=== PATIENT | male | born 1980 | race Caucasian/White ===

== ENCOUNTER 2025-02-17 11:53 | Emergency (ER) | payer OTHER ==
--- OUTSIDE RECORDS SUMMARY | 2025-02-17 11:57 | XMS REPORT | Continuity of Care Document ---
Author Name Unknown Address [address] [facility] [address] [place] [address] [facility] Address [address] [facility] [address] [place] [address] Care Team Providers Care Deckhand Clam Dredge Name Role Phone Rob Zuleta Attending Clinician Unavailable Mimi Shah Attending Clinician Unavailab Rob Blackmon Admitting Clinician Unavailable UNDEFINED Admitting Clinician Unavailable Payers Payer Name Policy Type Policy Number Effective Date Expirati on Date Source Allergies, Adverse Reactions, Alerts Allergy Name Allergy Type Status Severity Reaction(s) Onset Date Inactive Date Treating Clinician Comments Source No Known Allergie s DA Active U 2020-05 00:00: 00 [facility] No Known Allergie s DA Active U 2020-05 00:00: 00 [facility] Procedures Procedure Date / Time Performed Performing Clinicia n Source [id number] 2021-04-20 00:00:00 [email or web address] [facility] Encounters Start Date/Time End Date/Time Encounter Type Admission Type Attending Clinicians Care Facility Care Department Encounter ID Source 2021-04-19 20:17:00 2021-04-20 18:16:00 Inpatient UR Rob Zuleta [facility] [id number] 97 [facility] 2021-04-20 00:09:00 2021-04-20 00:09:00 Outpatient Mimi Shah [facility] [id number] [facility] 2021-04-19 18:27:00 2021-04-19 18:27:00 Inpatient Mimi Shah [facility] [id number] [facility] Results Test Description Test Time Test Comments Results Result Co mments Source COMPREHENSIVE METABOLIC [id number] 21:01:00* Test Item Value Reference Range Interpretation Comme nts SODIUM (test code = NA) 143 mmol/L 134-147 N POTASSIUM (test code = K) 3.5 mmol/L 3.4-5.0 N CHLORIDE (test code = CL) 114 mmol/L 100-108 H CARBON DIOXIDE (test code = CO2) 23 mmol/L 21-32 N ANION GAP (test code = GAP) 6.0 GAP calc 4.0-15.0 N GLUCOSE (test code = GLU) 70 MG/DL 70-110 N BLOOD UREA NITROGEN (test code = BUN) 10 MG/DL 7-18 N GLOMERULAR FILTRATION RATE (test code = GFR) >=60 max estimate estGFR >60 CREATININE (test code = CREAT) 0.8 MG/DL 0.8-1.3 N TOTAL PROTEIN (test code = PROT) 6.5 G/DL 6.4-8.2 N ALBUMIN (test code = ALB) 3.4 G/DL 3.4-5.0 N GLOBULIN (test code = GLOB) 3.1 GM/dL ALBUMIN/GLOBULIN RATIO (test code = A/G) 1.1 RATIO 1.2-2.2 L CALCIUM (test code = CA) 8.3 MG/DL 8.5-10.1 L BILIRUBIN TOTAL (test code = BILT) 0.60 MG/DL 0.2-1.2 N SGOT/AST (test code = AST) 20 Unit/L 15-37 N SGPT/ALT (test code = ALT) 26 Unit/L 12-78 N ALKALINE PHOSPHATASE TOTAL (test code = ALKP) 59 Unit/L 50-136 N CBC W/AUTO [id number] 20:42:00* Test Item Value Reference Range Interpretation Comme nts WHITE BLOOD CELL (test code = WBC) 6.4 K/mm3 3.5-11.0 N RED BLOOD CELL (test code = RBC) 4.65 M/mm3 4.70-6.10 L HEMOGLOBIN (test code = HGB) 14.1 G/DL 12.3-15.9 N HEMATOCRIT (test code = HCT) 41.0 % 35.8-46.7 N MEAN CELL VOLUME (test code = MCV) 88.2 Fl 86.3-98.9 N MEAN CELL HGB (test code = MCH) 30.3 pg 28.9-34.4 N MEAN CELL HGB CONCETRATION (test code = MCHC) 34.4 G/DL 32.1-34.5 N RED CELL DISTRIBUTION WIDTH (test code = RDW) 13.1 SD 11.5-14.5 N PLATELET COUNT (test code = PLT) 152 K/mm3 150-450 N MEAN PLATELET VOLUME (test c ode = MPV) 11.10 fL 7.0-9.6 H NEUTROPHIL % (test code = NT%) 60.3 % 40-76 N IMMATURE GRANULOCYTE % (test code = IG%) 0.2 % 0.0-5.0 N LYMPHOCYTE % (test code = LY%) 28.5 % 20.5-51.1 N MONOCYTE % (test code = MO%) 9.7 % 1.7-9.3 H EOSINOPHIL % (test code = EO%) 0.8 % 0.0-6.0 N BASOPHIL % (test code = BA%) 0.5 % 0.0-2.0 N NUCLEATED RBC % (test code = NRBC%) 0.0 /100WBC% 0.0-1.0 N NEUTROPHIL # (test code = NT#) 3.9 K/mm3 1.8-7.6 N IMMATURE GRANULOCYTE # (test code = IG#) 0.01 x10 3/uL 0.00-0.03 N LYMPHOCYTE # (test code = LY#) 1.8 K/mm3 0.6-3.0 N MONOCYTE # (test code = MO#) 0.6 K/mm3 0.2-1.5 N EOSINOPHIL # (test code = EO#) 0.1 K/mm3 0.0-0.4 N BASOPHIL # (test code = BA#) 0.0 K/mm3 0.0-0.2 N NUCLEATED RBC # (test code = NRBC#) 0.0 K/mm3 0.00-0.01 N MANUAL DIFF REQUIRED (test c ode = MDIFF) NO DIFF/SCN CRITERIA Notes Date/Time Note Provider Source 2021-04-20 14:56:00 [facility] ([facility]) DT Operative Note REPORT#:[id number] REPORT STATUS: Signed DATE:04/20/21 TIME:1455 PATIENT: JALIL GIANG UNIT #: [id number] ROOM/BED: [place] [address] : 80 AGE: 41 SEX: M ATTEND: Rob Zuleta MD ADM AUTHOR: Christiana Medina MD * ALL edits or amendments must be made on the electronic/computer document * Operative Report Operative Note Note: Preoperative diagnosis: Acute appendicitis Postoperative diagnosis: Acute appendicitis Procedure: Laparoscopic appendectomy Surgeon: Christiana Medina MD Blower Mechanic: Litzy Gunn Anesthesia: General EBL: 5 cc IV fluids: Per anesthesia Urine output: Per anesthesia complications: None Specimen: Appendix Drains: None Finding: Acute suppurative appendicitis Procedure in detail: Patient is a 41-year-old male presents to the hospital as a transfer from an outside urgent care with a diagnosis of a acute appendicitis. Upon my evaluation, patient had 3-day history of abdominal pain, CT abdomen pelvis done at an outside facility shows inflamed and dilated appendix. Upon my evaluation, patient had rebound tenderness in the right lower quadrant. Discussed the treatment options. Patient expressed interest in surgical intervention. The risks, benefits, and alternatives were explained to the patient. Patient verbalized understanding and wished to proceed with an operation. Patient was brought to the operating room, placed supine on the operating table, general anesthesia was administered by anesthesia department. The abdomen was prepped and draped in usual surgical fashion. Preoperative timeout was performed. Patient was on scheduled antibiotics. A 5 mm incision was made in the left upper quadrant, using 5 mm optical trocar, the abdominal cavity was accessed with Optiview technique. Once inside the abdominal cavity, pneumoperitoneum was established with carbon dioxide. Initial inspection of the abdominal cavity revealed no trocar injuries. Additional 12 mm trochars placed in the left flank and a 5 mm trochars placed in the suprapubic region. Patient was positioned in Trendelenburg with rotation toward the left. Attention was turned to the right lower quadrant, the omentum was grasped retracted cephalad, the small bowel was swept to the patient's left. We visualized a dilated, inflamed, and intraperitoneal appendix that is reflected to the right paracolic gutter. The appendix was grasped, gently mobilized and placed onto anterior and caudal traction. This allowed exposure of the mesoappendix. The mesoappendix was divided and ligated sequentially with the [place] LigaSure device all the way to the appendiceal cecal base. Once at the appendiceal base, the appendix was transected with a powered [place] stapler using a 45 mm blue load. Appendix was placed in an Endo Catch bag and retrieved through the left flank trocar. The surgical bed was reinspected, hemostasis was excellent. The staple line appeared intact. Pelvis was inspected and had mild amount of suppurative fluid that was suctioned. No other lesions noted in the abdominal cavity. At this time, the 12 mm trocar site was closed with an 0 Vicryl suture using a PMI device. Pneumoperitoneum was evacuated, all trochars were removed, skin incisions were closed with 4-0 Monocryl in subcuticular fashion. Dermabond was applied over the incisions. Patient tolerated the procedure well, was extubated, transferred to PACU in stable conditions. Instrument counts were correct x2. at 1500 RPT #: [id number] END OF REPORT [facility] 2021-04-20 01:46:00 [facility] ([facility]) Clinical Note REPORT#:[id number] REPORT STATUS: Signed DATE:04/20/21 TIME:145 PATIENT: JALIL GIANG UNIT #: [id number] ROOM/BED: [place] [address] : 80 AGE: 41 SEX: M ATTEND: Rob Zuleta MD ADM AUTHOR: Marybel Grace * ALL edits or amendments must be made on the electronic/computer document * See Addendum Marybel Grace 04/20/21 0146: Clinical Note Note: H and P done by JEFFREY Flanagan. The patient's medical records are located in different number of [id number]. at 0148 at 0643 Addendum 1: 04/20/21 0843 by Orion Parker MD Just added the history from other account to this account. Masha Frazier 04/19/211939: History of Present Illness HPI Chief complaint: Abd pain PCP: PCP: Undefined Provider HPI: 41 y/o male without significant PMHx, transferred from [place] for the mgmt of acute appendicitis. According to pt, he has had intermittent mild to moderate lower abdominal pain for several weeks, usually resolves spontaneuosly. He said he thought it was hernia, so he "takes it easy" He said the pain has been excruciating the past 2 days associated with decreased appetite. He went to ER in [place] today as a result of the unresolving pain. CT of abd is suggestive of acute appendicitis hence he was transferred to [facility]. He denies trauma, fever, nausea or vomiting. We are admitting him for the mgmt of acute appendicitis. History Past medical history: Denies: Alcoholism/subst abuse. Family history: Reports: Diabetes, Hypertension. Alcohol use: Alcohol use Drug use: Denies recreational drugs Smoking status: Smoking status for patients 13 years old or older: Never Smoker Medication/Allergy-Vaccine Hx Medications: Current Hospital Medications: Anti-Infective Agents Sig/Maureen Start time Last Medication Dose Route Stop Time Status Admin Piperacillin Sod/ 2.25 GM Q8H 04/19 1945 UNV Tazobactam Sod IV 05/03 1944 (ZOSYN 2.25 GM) Sodium Chloride 100 ML (SODIUM CHLORIDE 0.9%) Central Nervous System Agents Sig/Maureen Start time Last Medication Dose Route Stop Time Status Admin Lorazepam 1 MG Q12H PRN PRN 04/19 1945 UNV (ATIVAN) IV 05/19 1943 Morphine Sulfate 2 MG Q3H PRN PRN 04/19 1945 UNV (morphine Sulfate) IV 04/29 1944 Electrolytic, Caloric, And Justice Sig/Maureen Start time Last Medication Dose Route Stop Time Status Admin Lactated Ringer's 1,000 ML X1ED STA 04/19 1937 PEND (LACTATED RINGERS) IV 04/20 0336 Gastrointestinal Drugs Sig/Maureen Start time Last Medication Dose Route Stop Time Status Admin Ondansetron HCl 4 MG Q6H PRN PRN 04/19 1945 UNV (ZOFRAN) IV 05/19 1943 Review of Systems GI: Reports: abdominal pain. Neuro: Reports: headache. All systems rev neg: except as marked Physical Exam VS/I O PATIENT WEIGHT: Weight (lb): Weight (oz): Weight (kg): General appearance: alert, awake, oriented Head/Eyes: atraumatic, clear cornea, EOMI, normocephalic, PERRLA ENT: normal dentition, normal ear left, normal ear right, normal nose Neck: full range of motion, non-tender, no JVD, no lymphadenopathy Cardiovascular: normal capillary refill, regular rate rhythm, normal heart sounds Respiratory: clear to auscultation, no distress, no tenderness, aerating well Abdomen/GI: active bowel sounds, soft Abdomen quadrants: LLQ tenderness, RLQ tenderness Extremities: moves all, no edema-all extremities, normal capillary refill, no clubbing, no cyanosis Musculoskeletal: full range of motion, normal inspection 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 Zofran for N/V Surgery consulted in er, appreciate input Fatty liver -Low fat diet -F/u with PCP for further work up upon discharge DVT prphy: SCDs. Consider anticoagulant postop Nicholas Oglesby 04/20/21 0755: History Medication/Allergy-Vaccine Hx Allergies: Coded Allergies: No Known Allergies (04/19/21) Attestations Physician Attestation Agree w/findings plan: Agree with the findings and plan as documented at 1956 at 0755 RPT #: [id number] END OF REPORT at 0850 RPT #: [id number] END OF REPORT [facility] 2021-04-19 19:40:00 [facility] ([facility]) History Physical - Adult REPORT#:[id number] REPORT STATUS: Signed DATE:04/19/21 TIME:1939 PATIENT: JALIL GIANG UNIT #: [id number] ROOM/BED: : 80 AGE: 41 SEX: M ATTEND: Mimi Shah DO ADM DT: AUTHOR: Masha Frazier MSN * ALL edits or amendments must be made on the electronic/computer document * Masha Frazier 04/19/211939: History of Present Illness HPI Chief complaint: Abd pain PCP: PCP: Undefined Provider HPI: 41 y/o male without significant PMHx, transferred from [place] for the mgmt of acute appendicitis. According to pt, he has had intermittent mild to moderate lower abdominal pain for several weeks, usually resolves spontaneuosly. He said he thought it was hernia, so he "takes it easy" He said the pain has been excruciating the past 2 days associated with decreased appetite. He went to ER in [place] today as a result of the unresolving pain. CT of abd is suggestive of acute appendicitis hence he was transferred to [facility]. He denies trauma, fever, nausea or vomiting. We are admitting him for the mgmt of acute appendicitis. History Past medical history: Denies: Alcoholism/subst abuse. Family history: Reports: Diabetes, Hypertension. Alcohol use: Alcohol use Drug use: Denies recreational drugs Smoking status: Smoking status for patients 13 years old or older: Never Smoker Medication/Allergy-Vaccine Hx Medications: Current Hospital Medications: Anti-Infective Agents Sig/Maureen Start time Last Medication Dose Route Stop Time Status Admin Piperacillin Sod/ 2.25 GM Q8H 04/19 1945 UNV Tazobactam Sod IV 05/03 1944 (ZOSYN 2.25 GM) Sodium Chloride 100 ML (SODIUM CHLORIDE 0.9%) Central Nervous System Agents Sig/Maureen Start time Last Medication Dose Route Stop Time Status Admin Lorazepam 1 MG Q12H PRN PRN 04/19 1945 UNV (ATIVAN) IV 05/19 1943 Morphine Sulfate 2 MG Q3H PRN PRN 04/19 1945 UNV (morphine Sulfate) IV 04/29 1944 Electrolytic, Caloric, And Justice Sig/Maureen Start time Last Medication Dose Route Stop Time Status Admin Lactated Ringer's 1,000 ML X1ED STA 04/19 1937 PEND (LACTATED RINGERS) IV 04/20 0336 Gastrointestinal Drugs Sig/Maureen Start time Last Medication Dose Route Stop Time Status Admin Ondansetron HCl 4 MG Q6H PRN PRN 04/19 1945 UNV (ZOFRAN) IV 05/19 1943 Review of Systems GI: Reports: abdominal pain. Neuro: Reports: headache. All systems rev neg: except as marked Physical Exam VS/I O PATIENT WEIGHT: Weight (lb): Weight (oz): Weight (kg): General appearance: alert, awake, oriented Head/Eyes: atraumatic, clear cornea, EOMI, normocephalic, PERRLA ENT: normal dentition, normal ear left, normal ear right, normal nose Neck: full range of motion, non-tender, no JVD, no lymphadenopathy Cardiovascular: normal capillary refill, regular rate rhythm, normal heart sounds Respiratory: clear to auscultation, no distress, no tenderness, aerating well Abdomen/GI: active bowel sounds, soft Abdomen quadrants: LLQ tenderness, RLQ tenderness Extremities: moves all, no edema-all extremities, normal capillary refill, no clubbing, no cyanosis Musculoskeletal: full range of motion, normal inspection 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 Zofran for N/V Surgery consulted in er, appreciate input Fatty liver -Low fat diet -F/u with PCP for further work up upon discharge DVT prphy: SCDs. Consider anticoagulant postop RenyNicholas K 04/20/21 0755: History Medication/Allergy-Vaccine Hx Allergies: Coded Allergies: No Known Allergies (04/19/21) Attestations Physician Attestation Agree w/findings plan: Agree with the findings and plan as documented at 1956 at 0759 RPT #: [id number] END OF REPORT [facility]
[2025-02-17 12:41] LABS: Absolute Lymphocytes (CBC) 1.8 K/uL (0.7-4.9); Hematocrit 42.5 % (39.6-49.0); Hemoglobin 14.4 g/dL (13.6-17.9); MCH 30.1 pg (27.0-35.0); MCHC 33.9 g/dL (32.0-36.0); MCV 88.8 fL (80-100); MPV 9.5 fL (7.6-11.3); Nucleated RBC Absolute Count 0.0 (0-0); Nucleated Red Blood Cells % 0.0 % (0-0); RBC Red Blood Cell Count 4.79 M/uL (4.33-5.43); White Blood Count 5.30 thou/uL (4.3-10.9)
--- NOTE | 2025-02-17 12:48 | RAD REPORT ---
EXAMINATION: Head Brain Wo Cont CLINICAL INDICATION: Male, 44 years old.VISUAL DISTURBANCES TECHNIQUE: Axial CT images from the skull base to the vertex without intravenous contrast. Coronal an d sagittal reformatted images were created from the data set. One or more of the following dose reduction techniques were used: Automated exposure control, adjustment of the mA and/or kV according to patient size, and/or iterative reconstruction. Unless otherwise specified, incidental findings do not require dedicated imaging follow-up. [id number]. COMPARISON: 10/31/2024 FINDINGS: INTRACRANIAL: No acute intracranial hemorrhage. No acute large vascular territory infarct. No hydro cephalus. No mass effect or midline shift. No significant white matter disease. VASCULATURE: No visualized abnormalities in the arteries or dural venous sinuses. SCALP/SKULL: No calvarial fracture identified. No acute soft tissue abnormality. SINUSES: The visualized paranasal sinuses are mostly clear. No significant mastoid fluid. IMPRESSION: No acute intracranial abnormality.
[2025-02-17 13:01] LABS: ALT/SGPT 43.0 U/L (16-61); AST/SGOT 32.0 U/L (15-37); Albumin 3.9 g/dL (3.4-5.0); Albumin/Globulin Ratio 1.3 (1.1-1.8); Alkaline Phosphatase 63.0 U/L (45-117); Anion Gap 9.0 mEq/L (5.0-15.0); BUN Blood Urea Nitrogen 15.0 mg/dL (7-18); Bilirubin Indirect, Calculated 0.4 mg/dL (0.2-0.8); Globulin 3.1 g/dL (2.3-3.5); Glucose Level 91.0 mg/dL (74-106); Potassium 4.0 mEq/L (3.5-5.1); Troponin High Sensitivity 4.0 pg/mL (<58.9)
--- NOTE | 2025-02-17 13:14 | EDPHYS ---
Physician Documentation [facility] Name: Rito Muñoz Age: 44 yrs Sex: Male : 1980 Arrival Date: 02/17/2025 Time: 11:53 Bed 15 Private MD: ED Physician Maxi Finn HPI: 02/17 12:31 This 44 yrs old Male presents to ER via Ambulatory with complaints of Blurred Vision. 7 12:31 44-year-old male with a past medical history of migraines, appendectomy, and IBS jh7 presents to the ER for an episode of blurred vision that occurred at 0900 this morning. The patient reports that he was at work and said that his peripheral vision became blurry. This was accompanied by a headache as well. The patient stated this lasted about 20 minutes and then resolved. Denies unilateral weakness, numbness, tingling, dizziness, or speech changes.. Historical: - Allergies: 12:31 No Known Allergies; iw - PMHx: 12:31 Anxiety; depressive disorder; insomnia; iw - PSHx: 12:31 Appendectomy; iw - Immunization history:: Adult Immunizations not up to date. - Infectious Disease History:: Denies. - Social history:: Smoking status: Patient denies any tobacco usage or history of. ROS: 12:31 Constitutional: Per HPI 7 Exam: 12:31 Constitutional: This is a well developed, well nourished patient who is awake, alert, jh7 and in no acute distress. Head/Face: Normocephalic, atraumatic. Eyes: Pupils equal round and reactive to light, extra-ocular motions intact. Lids and lashes normal. Conjunctiva and sclera are non-icteric and not injected. Cornea within normal limits. Periorbital areas with no swelling, redness, or edema. ENT: Nares patent. No nasal discharge, no septal abnormalities noted. Tympanic membranes are normal and external auditory canals are clear. Oropharynx with no redness, swelling, or masses, exudates, or evidence of obstruction, uvula midline. Mucous membranes moist. Neck: Trachea midline, no thyromegaly or masses palpated, and no cervical lymphadenopathy. Supple, full range of motion without nuchal rigidity, or vertebral point tenderness. No Meningismus. Cardiovascular: Regular rate and rhythm with a normal S1 and S2. No gallops, murmurs, or rubs. Normal PMI, no JVD. No pulse deficits. Respiratory: Lungs have equal breath sounds bilaterally, clear to auscultation and percussion. No rales, rhonchi or wheezes noted. No increased work of breathing, no retractions or nasal flaring. Abdomen/GI: Soft, non-tender, with normal bowel sounds. No distension or tympany. No guarding or rebound. No evidence of tenderness throughout. Skin: Warm, dry with normal turgor. Normal color with no rashes, no lesions, and no evidence of cellulitis. MS/ Extremity: Pulses equal, no cyanosis. Neurovascular intact. Full, normal range of motion. Neuro: Awake and alert, GCS 15, oriented to person, place, time, and situation. Cranial nerves II-XII grossly intact. Motor strength 5/5 in all extremities. Sensory grossly intact. Cerebellar exam normal. Normal gait. 14:46 Radiologist reports: No acute intracranial abnormalities [facility] Vital Signs: 12:31 BP 110 / 78; Pulse 66; Resp 16; Pulse Ox 100% on R/A; Weight 77.11 kg; Height 5 ft. 9 iw in. ; Pain 4/10; 13:39 BP 114 / 74; Pulse 64; Resp 18; Pulse Ox 100% on R/A; af3 12:31 Body Mass Index 25.10 (77.11 kg, 175.26 cm) 12:31 Pain Scale: Adult NIH Stroke Scale Scores: 12:31 NIHSS Score: 0 [facility] MDM: 11:58 Medical Screening Exam initiated [facility] 13:07 Differential diagnosis: CVA, TIA, Hypoglycemia, brain mass electrolyte disturbance, [facility] AMI, NSTEMI, glaucoma, cataracts. Data reviewed: vital signs, nurses notes, lab test result(s), EKG, radiologic studies, CT scan. Independent interpretation of the following test(s) in the Emergency Department EKG: See my EKG interpretation above. Counseling: I had a detailed discussion with the patient and/or guardian regarding the historical points, exam findings, and any diagnostic results supporting the discharge/admit diagnosis, lab results, radiology results, to return to the emergency department if symptoms worsen or persist or if there are any questions or concerns that arise at home. 02/17 12:17 Order name: Basic Metabolic Panel; Complete Time: 13:05 [facility] 02/17 12:17 Order name: CBC with Diff; Complete Time: 12:50 [facility] 02/17 12:17 Order name: LFT's; Complete Time: 13:05 [facility] 02/17 12:17 Order name: Troponin HS; Complete Time: 13:05 [facility] 02/17 13:06 Order name: Glucose, Ancillary Testing; Complete Time: 13:06 EDMS 02/17 12:17 Order name: CT Head Brain wo Cont; Complete Time: 12:50 [facility] 02/17 12:17 Order name: EKG; Complete Time: 12:17 [facility] 02/17 12:17 Order name: Cardiac monitoring; Complete Time: 13:06 [facility] 02/17 12:17 Order name: EKG - Nurse/Tech; Complete Time: 13:06 [facility] 02/17 12:17 Order name: IV Saline Lock; Complete Time: 12:37 [facility] 02/17 12:17 Order name: Labs collected and sent; Complete Time: 12:37 [facility] 02/17 12:17 Order name: O2 Per Protocol; Complete Time: 12:37 [facility] 02/17 12:17 Order name: O2 Sat Monitoring; Complete Time: 12:37 [facility] 02/17 12:17 Order name: Blood Glucose Level; Complete Time: 12:55 [facility] EC:04 Rate is 64 beats/min. Rhythm is regular. QRS Cook is Normal. MD interval is normal. QRS jh7 interval is normal. QT interval is normal. No Q waves. T waves are Normal. No ST changes noted. Clinical impression: Normal ECG. Administered Medications: No medications were administered Disposition Summary: 02/17/25 13:13 Discharge Ordered Notes: Location: Home [facility] Problem: new [facility] Symptoms: are resolved [facility] Condition: Stable [facility] Diagnosis - Other visual disturbances [facility] - Headache [facility] Followup: [facility] - With: Private Physician - When: 2 - 3 days - Reason: Recheck today's complaints Discharge Instructions: - Discharge Summary Sheet [facility] - General Headache Without Cause [facility] - Visual Disturbances [facility] Forms: - Medication Reconciliation Form [facility] - Patient Portal Instructions [facility] - Leadership Thank You Letter [facility] NIH Stroke Scale - NIH Stroke Score Date: 02/17/2025 Time: 12:31 Total Score = 0 10. Dysarthria (speech clarity - read or repeat words) - 0(Normal) 11. Extinction and Inattention (visual/tactile/auditory/spatial/personal) - 0(No abnormality) 1a. Level of Consciousness (LOC) - 0(Alert) 1b. Level of Consciousness (LOC) (Month \T\ Age) - 0(Both) 1c. LOC Commands (Open \T\ Closes Eyes/Physical Therapy Instructor) - 0(Both) 2. Best Gaze (Lateral Gaze Paresis) - 0(Normal) 3. Visual Field Loss - 0(No visual loss) 4. Facial Palsy - 0(Normal) 5a. Left Arm: Motor (10-second hold) - 0(No drift) 5b. Right Arm: Motor (10-second hold) - 0(No drift) 6a. Left Leg: Motor (5-second hold - always test supine) - 0(No drift) 6b. Right Leg: Motor (5-second hold - always test supine) - 0(No drift) 7. Limb Ataxia (finger/nose \T\ heel/glover - test with eyes open) - 0(Absent) 8. Sensory Loss (pinprick arms/legs/face) - 0(Normal) 9. Best Language: Aphasia (description/naming/reading) - 0(No aphasia) Initials: jh7 Addendum: 02/22/2025 06:55 Co-signature as Attending Physician, Maxi Finn MD I agree with the [facility] assessment and plan of care. Signatures: Dispatcher [employer] Maxi Erickson MD MD cha Williams, Irene, RN Jennifer North, SENIOR LINUX UNIX ADMINISTRATOR SENIOR LINUX UNIX ADMINISTRATOR jh7
--- NOTE | 2025-02-17 13:14 | ER ---
Nurse's Notes [facility] Name: Rito Muñoz Age: 44 yrs Sex: Male : 1980 Arrival Date: 02/17/2025 Time: 11:53 Bed 15 Private MD: Diagnosis: Other visual disturbances;Headache Presentation: 02/17 12:11 Chief complaint: Patient states: he had an episode of blurry vision to outer [place] of iw vision , lasted 25 minutes, started feeling light headed , now has a headache, vision has mostly returned to normal. Coronavirus screen: At this time, the client does not indicate any symptoms associated with coronavirus-19. Ebola Screen: No symptoms or risks identified at this time. Initial Sepsis Screen: Does the patient meet any 2 criteria? No. Patient's initial sepsis screen is negative. Does the patient have a suspected source of infection? No. Patient's initial sepsis screen is negative. Risk Assessment: Do you want to hurt yourself or someone else? Patient reports no desire to harm self or others. Onset of symptoms was February 17, 2025. 12:11 Method Of Arrival: Ambulatory iw 12:11 Acuity: SERGIO 2 iw Triage Assessment: 13:38 General: Appears. af3 Historical: - Allergies: 12:31 No Known Allergies; iw - PMHx: 12:31 Anxiety; depressive disorder; insomnia; iw - PSHx: 12:31 Appendectomy; iw - Immunization history:: Adult Immunizations not up to date. - Infectious Disease History:: Denies. - Social history:: Smoking status: Patient denies any tobacco usage or history of. Screenin:37 [facility] ED Fall Risk Assessment (Adult) History of falling in the last 3 months, af3 including since admission No falls in past 3 months (0 pts) Confusion or Disorientation No (0 pts) Intoxicated or Sedated No (0 pts) Impaired Gait No (0 pts) Mobility Assist Device Used No (0 pt) Altered Elimination No (0 pt) Score/Fall Risk Level 0 - 2 = Low Risk Oriented to surroundings, Maintained a safe environment, Educated pt \T\ family on fall prevention, incl call for assistance when getting out of bed. Abuse screen: Denies threats or abuse. Denies injuries from another. Nutritional screening: No deficits noted. Tuberculosis screening: No symptoms or risk factors identified. Assessment: 12:15 General: Appears in no apparent distress. comfortable, well groomed, well developed, af3 Behavior is calm, cooperative, appropriate for age. Pain: Denies pain. Neuro: Level of Consciousness is awake, alert, obeys commands, Oriented to person, place, time, situation, Appropriate for age. Cardiovascular: Patient's skin is warm and dry. Respiratory: Airway is patent Respiratory effort is even, unlabored, Respiratory pattern is regular, symmetrical. Vital Signs: 12:31 BP 110 / 78; Pulse 66; Resp 16; Pulse Ox 100% on R/A; Weight 77.11 kg; Height 5 ft. 9 iw in. ; Pain 4/10; 13:39 BP 114 / 74; Pulse 64; Resp 18; Pulse Ox 100% on R/A; af3 12:31 Body Mass Index 25.10 (77.11 kg, 175.26 cm) iw 12:31 Pain Scale: Adult iw NIH Stroke Scale Scores: 12:31 NIHSS Score: 0 [facility] ED Course: 11:57 Patient arrived in ED. eb 11:57 Jennifer Chairez FNP is PHCP. [facility] 11:58 Maxi Finn MD is Attending Physician. 7 12:13 Nirmala Tang, AJAY is Primary Nurse. af3 12:13 Triage completed. iw 12:16 Arm band placed on Patient placed in an exam room, on a stretcher. af3 12:37 Initial lab(s) drawn, by confectionery laboratory manager, sent to lab. Inserted saline lock: 20 gauge in left ts3 antecubital area, using aseptic technique. Blood collected. Flushed with 10 mL NS. 12:44 CT Head Brain wo Cont In Process Unspecified. EDMS 13:06 EKG done, by industrial maintenance technician. reviewed by Jennifer GRISSOM. ts3 13:37 Patient has correct armband on for positive identification. Bed in low position. Call af3 light in reach. Provided Education on: call light use . 13:37 No provider procedures requiring assistance completed. IV discontinued, intact, af3 bleeding controlled, No redness/swelling at site. Pressure dressing applied. Administered Medications: No medications were administered Medication: 12:15 VIS not applicable for this client. af3 Outcome: 13:13 Discharge ordered by . [facility] 13:39 Discharged to home ambulatory, af3 13:39 Condition: stable 13:39 Discharge instructions given to patient, Instructed on discharge instructions, follow up and referral plans. Demonstrated understanding of instructions, follow-up care, 13:39 Patient left the ED. af3 NIH Stroke Scale - NIH Stroke Score Date: 02/17/2025 Time: 12:31 Total Score = 0 10. Dysarthria (speech clarity - read or repeat words) - 0(Normal) 11. Extinction and Inattention (visual/tactile/auditory/spatial/personal) - 0(No abnormality) 1a. Level of Consciousness (LOC) - 0(Alert) 1b. Level of Consciousness (LOC) (Month \T\ Age) - 0(Both) 1c. LOC Commands (Open \T\ Closes Eyes/[employer]crew[employer] Helicopter) - 0(Both) 2. Best Gaze (Lateral Gaze Paresis) - 0(Normal) 3. Visual Field Loss - 0(No visual loss) 4. Facial Palsy - 0(Normal) 5a. Left Arm: Motor (10-second hold) - 0(No drift) 5b. Right Arm: Motor (10-second hold) - 0(No drift) 6a. Left Leg: Motor (5-second hold - always test supine) - 0(No drift) 6b. Right Leg: Motor (5-second hold - always test supine) - 0(No drift) 7. Limb Ataxia (finger/nose \T\ heel/glover - test with eyes open) - 0(Absent) 8. Sensory Loss (pinprick arms/legs/face) - 0(Normal) 9. Best Language: Aphasia (description/naming/reading) - 0(No aphasia) Initials: [facility] Signatures: Dispatcher [employer] Melissa Awad, RN Sabra Martínez Jennifer, FNP GREASE RENDERER [facility] Nirmala Tang RN RN af3 Key Schmidt ts3
[2025-02-17 13:43] VITALS: BP 110/78; O2SAT 100
== END 2025-02-17 13:39 | disposition home or self-care (01) ==
LOC: ER 11:53
DX: H53.8 Other visual disturbances (principal); R51.9 Headache, unspecified
CPT/HCPCS: 36415; 70450; 80048; 80076; 82947; 84484; 85025; 93005; 99284